=== PATIENT | female | born 1990 | race Two or more races ===

== ENCOUNTER → 2021-03-13 | Outpatient (CLI) | payer BC ==
[2021-03-13 15:07] LABS: HEMATOCRIT 32.1 % (36.0-47.0); HEMOGLOBIN 10.5 g/dL (12.0-15.5); RED BLOOD COUNT 3.73 x10^6/uL (3.50-5.40); RED CELL DISTRIBUTION WIDTH 13.7 % (11.5-14.5); WHITE BLOOD COUNT 9.8 x10^3/uL (4.0-11.0)
== END ==
LOC: LAB 13:48
PROVIDERS: ATTEND Obstetrics & Gynecology
DX: Z34.93 Encounter for supervision of normal pregnancy, unspecified, third trimester (principal)
CPT/HCPCS: 36415; 82950; 85027

== ENCOUNTER → 2021-03-20 | Outpatient (CLI) | payer BC | LOC: LAB 08:19 | PROVIDERS: ATTEND Obstetrics & Gynecology | DX: Z34.93 Encounter for supervision of normal pregnancy, unspecified, third trimester (principal); Z3A.00 Weeks of gestation of pregnancy not specified | CPT/HCPCS: 36415; 82947; 82950 ==

== ENCOUNTER 2021-04-07 21:50 | Observation (INO) | payer BC ==
[2021-04-07 22:26] LABS: AMNIO PT NEGATIVE; BILIRUBIN,URINE NEGATIVE (NEG); CLARITY,URINE CLEAR; NITRITE,URINE NEGATIVE (NEG); PH,URINE 6.5 (<5.0-8.0); PROTEIN,URINE NEGATIVE (NEG-TRACE); UROBILINOGEN,URINE 0.2 mg/dL (0.2 mg/dL)
[2021-04-07 22:31] LABS: COLOR,URINE YELLOW
[2021-04-07 22:32] LABS: BACTERIA,URINE FEW /HPF (0-FEW); RBC,URINE OCC /HPF (0-2); WBC,URINE OCC /HPF (0-4)
[2021-04-07 22:33] LABS: AMPHETAMINE/METHAMPHETAMINE NEG (NEG); BARBITURATES NEG (NEG); BENZODIAZEPINES NEG (NEG); CANNABINOIDS NEG (NEG); COCAINE NEG (NEG); METHADONE NEG (NEG); OPIATES NEG (NEG); PHENCYCLIDINE NEG (NEG)
== END 2021-04-07 22:52 | disposition home or self-care (01) ==
LOC: 3 SO LND 21:50
PROVIDERS: ADMIT Obstetrics & Gynecology
DX: O42.913 Preterm premature rupture of membranes, unspecified as to length of time between rupture and onset of labor, third trimester (principal); Z79.899 Other long term (current) drug therapy; Z3A.34 34 weeks gestation of pregnancy
CPT/HCPCS: 36415; 59025; 80307; 81001; 84112; G0378; G0379

== ENCOUNTER 2021-04-22 22:22 | Observation (INO) | payer BC ==
[2021-04-22] MEDS ORDERED: IV RINGERS,LACTATED 1000ML 1,000 ML IV SCH (22:30)
[2021-04-22 22:44] LABS: BILIRUBIN,URINE NEGATIVE (NEG); CLARITY,URINE CLEAR; COLOR,URINE YELLOW; NITRITE,URINE NEGATIVE (NEG); PROTEIN,URINE NEGATIVE (NEG-TRACE)
[2021-04-22 22:51] LABS: BACTERIA,URINE FEW /HPF (0-FEW); RBC,URINE 0 /HPF (0-2); WBC,URINE OCC /HPF (0-4)
[2021-04-22 23:01] LABS: BARBITURATES NEG (NEG); BENZODIAZEPINES NEG (NEG); CANNABINOIDS NEG (NEG); COCAINE NEG (NEG); METHADONE NEG (NEG); OPIATES NEG (NEG); PHENCYCLIDINE NEG (NEG)
[2021-04-22 23:03] LABS: AMPHETAMINE/METHAMPHETAMINE NEG (NEG)
== END 2021-04-22 23:25 | disposition home or self-care (01) ==
LOC: 3 SO LND 22:22
PROVIDERS: ADMIT Obstetrics & Gynecology; ATTEND Obstetrics & Gynecology
DX: O36.8130 Decreased fetal movements, third trimester, not applicable or unspecified (principal); Z3A.36 36 weeks gestation of pregnancy; Z79.899 Other long term (current) drug therapy
CPT/HCPCS: 59025; 80307; 81001; G0378; G0379

== ENCOUNTER → 2021-05-14 | Outpatient (CLI) | payer BC ==
[~2021-05-14] MED LIST: HYDR25CA75 PO; IBUP-1027 PO; OXYC1TAB15 PO; PREN1TAB58 PO
== END ==
LOC: LAB 12:32
PROVIDERS: ATTEND Obstetrics & Gynecology
DX: Z01.812 Encounter for preprocedural laboratory examination (principal); U07.1 COVID-19
CPT/HCPCS: U0003; U0005

== ENCOUNTER 2021-05-15 05:46 | Inpatient (IN) | payer BC ==
[~2021-05-15] VITALS: Ht 160 cm; Wt 93.5 kg
[2021-05-15] MEDS ORDERED: TERBUTALINE 1 MG/ML VIAL. SQ PRN (06:30)
[2021-05-15] MEDS ORDERED: OXYTOCIN 30 UNIT/500 ML PREMIX 500 ML IV PRN ×3 (06:30→20:45)
[2021-05-15] MEDS ORDERED: BUTORPHANOL 2 MG/ML VIAL. IVP PRN ×2 (06:30)
[2021-05-15] MEDS ORDERED: ACETAMINOPHEN 325 MG TABLET. PO PRN ×2 (06:30→20:45)
[2021-05-15] MEDS ORDERED: LIDOCAINE 1% PF 30 ML VIAL. INJ PRN (06:30)
[2021-05-15] MEDS ORDERED: 0.9 % SODIUM CHLORIDE 10 ML DISP.SYRIN. IV PRN ×2 (06:30→20:45)
[2021-05-15] MEDS ORDERED: HYDR25CA75 PO (06:47)
[2021-05-15] MEDS ORDERED: PREN1TAB58 PO (06:49)
[2021-05-15 06:53] LABS: BILIRUBIN,URINE NEGATIVE (NEG); CLARITY,URINE CLEAR; COLOR,URINE YELLOW; NITRITE,URINE NEGATIVE (NEG); PROTEIN,URINE NEGATIVE (NEG-TRACE)
[2021-05-15 06:54] LABS: BASO % 1 % (0-3); EOS # 0.1 x10^3/uL (0.0-0.7); EOS % 1 % (0-3); HEMATOCRIT 30.5 % (36.0-47.0); HEMOGLOBIN 9.9 g/dL (12.0-15.5); LYMPH # 0.7 x10^3/uL (1.0-4.8); LYMPH % 9 % (24-48); MEAN CORPUSCULAR HEMOGLOBIN 26 pg (25-35); MEAN CORPUSCULAR HGB CONC 32 g/dL (31-37); MEAN CORPUSCULAR VOLUME 79 fL (79-100); MONO # 0.6 x10^3/uL (0.0-1.1); MONO % 9 % (0-9); NEUT # 5.9 x10^3/uL (1.8-7.7); NEUT % 81 % (31-73); PLATELET COUNT 165 x10^3/uL (140-400); RED BLOOD COUNT 3.87 x10^6/uL (3.50-5.40); RED CELL DISTRIBUTION WIDTH 14.8 % (11.5-14.5); WHITE BLOOD COUNT 7.3 x10^3/uL (4.0-11.0)
[2021-05-15 07:23] LABS: BACTERIA,URINE 0 /HPF (0-FEW); RBC,URINE 0 /HPF (0-2); WBC,URINE 0 /HPF (0-4)
[2021-05-15] MEDS: IV RINGERS,LACTATED 1000ML 1,000 ML IV SCH ×2 (09:52→17:44)
--- NOTE | 2021-05-15 10:13 | PDOC1 ---
CHANNEL CEMENTER OUTSOLE MACHINE H&P Date of Admission: Date of Admission: May 15, 2021 at 05:46 History of Present Illness: EDC: 05/09/21 LMP: 08/12/20 31y @ 39.3 by L=18 presents for scheduled indxn. The pt began her care in [place]. She switched after moving. She had a IUFD at 32wks. Her last two pregnancies were . The fifth was PPROM at 34wks. She was in the hospital for about 4 days. She ended up with a C/S b/c she was told the baby was too big. The next she went into PTL at 34wks. She presented to the hospital and was found to be 5 cm. She was in the hospital for 2 days and ultimately had a . The pt has had a few ctxs to this point. PMH: Denies PSH: C/S, D&C Meds: PNV, Vistaril All: NKDA OBHx: 3 x TSVD, 1 x 32wk IUFD, 1 x 34wk C/S (PPROM), 1 x 34wk (PTL) SH: no tob, no EtOH FH: noncontributory Medications: Meds: Current Medications Medications (Trade) Dose Ordered Sig/Gemini Route PRN Reason Start Time Stop Time Status Last Admin Dose Admin Ringer's Solution 1,000 ml @ 125 mls/hr Q8H IV 05/15/21 06:30 05/15/21 09:52 Oxytocin 500 ml @ 0 mls/hr CONT PRN IV SEE I/O RECORD 05/15/21 06:30 05/15/21 07:43 Allergies: Coded Allergies: No Known Drug Allergies (Unverified , 05/15/21) Physical Exam: PE: GENERAL: No apparent distress. Alert and oriented. HEENT: Head normocephalic, atraumatic. NECK: Supple LUNGS: Clear to auscultation. HEART: RRR, S1, S2 present, pulses intact ABDOMEN: Soft, positive bowel sounds. EXTREMITIES: No cyanosis or edema. NEUROLOGIC: Normal speech, normal tone PSYCHIATRIC: Normal affect, normal mood. SKIN: No ulceration. FHT: 120s +acels/no decels/mLTV [place]: 1-3 min SVE: 1/50/-3 Labs: Laboratory Tests Test 05/15/21 06:15 05/15/21 06:29 White Blood Count 7.3 x10^3/uL (4.0-11.0) Red Blood Count 3.87 x10^6/uL (3.50-5.40) Hemoglobin 9.9 g/dL (12.0-15.5) L Hematocrit 30.5 % (36.0-47.0) L Mean Corpuscular Volume 79 fL (79-100) Mean Corpuscular Hemoglobin 26 pg (25-35) Mean Corpuscular Hemoglobin Concent 32 g/dL (31-37) Red Cell Distribution Width 14.8 % (11.5-14.5) H Platelet Count 165 x10^3/uL (140-400) Neutrophils (%) (Auto) 81 % (31-73) H Lymphocytes (%) (Auto) 9 % (24-48) L Monocytes (%) (Auto) 9 % (0-9) Eosinophils (%) (Auto) 1 % (0-3) Basophils (%) (Auto) 1 % (0-3) Neutrophils # (Auto) 5.9 x10^3/uL (1.8-7.7) Lymphocytes # (Auto) 0.7 x10^3/uL (1.0-4.8) L Monocytes # (Auto) 0.6 x10^3/uL (0.0-1.1) Eosinophils # (Auto) 0.1 x10^3/uL (0.0-0.7) Basophils # (Auto) 0.0 x10^3/uL (0.0-0.2) Treponema pallidum Antibody Nonreactive (Nonreactive) Urine Collection Type Unknown Urine Color Yellow Urine Clarity Clear Urine pH 7.0 (<5.0-8.0) Urine Specific Rumsey 1.020 (1.000-1.030) Urine Protein Negative mg/dL (NEG-TRACE) Urine Glucose (UA) Negative mg/dL (NEG) Urine Ketones (Stick) Negative mg/dL (NEG) Urine Blood Negative (NEG) Urine Nitrite Negative (NEG) Urine Bilirubin Negative (NEG) Urine Urobilinogen Dipstick 1.0 mg/dL (0.2 mg/dL) Urine Leukocyte Esterase Negative (NEG) Urine RBC 0 /HPF (0-2) Urine WBC 0 /HPF (0-4) Urine Squamous Epithelial Cells Many /LPF Urine Bacteria 0 /HPF (0-FEW) Laboratory Tests 05/15/21 06:15 Laboratory Tests 05/15/21 06:15 Assessment & Plan: A/P 31y @ 39.3 by L=18 1.) Indxn on Pit 2.) TOB - records requested again 3.) Prev C/S x 1 - desires TOLAC 4.) H/o PTL/PPROM - both at 34wks 5.) Elevated GTT - 0 of 4 values of 3 hr GTT elevated 6.) TDAP given 03/28/21 7.) Fetus cat I FHT 8.) GBS neg PHYLLIS CALDERA MD May 15, 2021 10:13
[2021-05-15] MEDS ORDERED: L&D EPIDURAL SYRINGE 50 ML ONE ×2 (12:05→16:21)
[2021-05-15] MEDS ORDERED: ePHEDrine PF IN SALINE 50 MG/10 ML SYRINGE. IV PRN ×2 (12:15→16:45)
[2021-05-15] MEDS ORDERED: IV RINGERS,LACTATED 1000ML 1,000 ML IV SCH (12:15)
[2021-05-15] MEDS ORDERED: NALOXONE 0.4 MG/ML VIAL. IV PRN ×2 (12:15→16:45)
[2021-05-15] MEDS ORDERED: ROPIVacaine 0.2% PF 10 ML VIAL. EPID PRN (12:15)
[2021-05-15] MEDS ORDERED: ROPIVacaine 0.2% PF 10 ML VIAL. ONE ×2 (13:00→19:30)
[2021-05-15] MEDS ORDERED: L&D EPIDURAL 50 ML SYRINGE. ONE (13:00)
[2021-05-15] MEDS ORDERED: fentaNYL PF VIAL 100 MCG/2 ML VIAL EPID ONE (16:45)
[2021-05-15] MEDS ORDERED: L&D EPIDURAL SYRINGE 50 ML EPID PRN (16:45)
[2021-05-15] MEDS ORDERED: IV RINGERS,LACTATED 1000ML 1,000 ML IV ONE (16:45)
[2021-05-15] MEDS ORDERED: ONDANSETRON PF 4 MG/2 ML VIAL. IV PRN (16:45)
[2021-05-15] MEDS ORDERED: GENTAMICIN SULFATE IV SCH (17:00)
[2021-05-15] MEDS ORDERED: NORMAL SALINE IV SCH (17:00)
[2021-05-15] MEDS ORDERED: AMPICILLIN SODIUM 2 GM in IV NORMAL SALINE 100ML 100 ML IV SCH (17:00)
--- NOTE | 2021-05-15 17:13 | PDOC ---
CUSTOMS COMPLIANCE ANALYST PROGRESS NOTE Date of Service: DATE: 05/15/21 TIME: 17:13 Subjective: Pt comfortable with ctxs. Denies f/c Objective: Labs: Laboratory Tests Test 05/15/21 06:15 05/15/21 06:29 White Blood Count 7.3 x10^3/uL (4.0-11.0) Red Blood Count 3.87 x10^6/uL (3.50-5.40) Hemoglobin 9.9 g/dL (12.0-15.5) L Hematocrit 30.5 % (36.0-47.0) L Mean Corpuscular Volume 79 fL (79-100) Mean Corpuscular Hemoglobin 26 pg (25-35) Mean Corpuscular Hemoglobin Concent 32 g/dL (31-37) Red Cell Distribution Width 14.8 % (11.5-14.5) H Platelet Count 165 x10^3/uL (140-400) Neutrophils (%) (Auto) 81 % (31-73) H Lymphocytes (%) (Auto) 9 % (24-48) L Monocytes (%) (Auto) 9 % (0-9) Eosinophils (%) (Auto) 1 % (0-3) Basophils (%) (Auto) 1 % (0-3) Neutrophils # (Auto) 5.9 x10^3/uL (1.8-7.7) Lymphocytes # (Auto) 0.7 x10^3/uL (1.0-4.8) L Monocytes # (Auto) 0.6 x10^3/uL (0.0-1.1) Eosinophils # (Auto) 0.1 x10^3/uL (0.0-0.7) Basophils # (Auto) 0.0 x10^3/uL (0.0-0.2) Treponema pallidum Antibody Nonreactive (Nonreactive) Urine Collection Type Unknown Urine Color Yellow Urine Clarity Clear Urine pH 7.0 (<5.0-8.0) Urine Specific [place] 1.020 (1.000-1.030) Urine Protein Negative mg/dL (NEG-TRACE) Urine Glucose (UA) Negative mg/dL (NEG) Urine Ketones (Stick) Negative mg/dL (NEG) Urine Blood Negative (NEG) Urine Nitrite Negative (NEG) Urine Bilirubin Negative (NEG) Urine Urobilinogen Dipstick 1.0 mg/dL (0.2 mg/dL) Urine Leukocyte Esterase Negative (NEG) Urine RBC 0 /HPF (0-2) Urine WBC 0 /HPF (0-4) Urine Squamous Epithelial Cells Many /LPF Urine Bacteria 0 /HPF (0-FEW) Laboratory Tests 05/15/21 06:15 Laboratory Tests 05/15/21 06:15 Physical Exam: GENERAL: No apparent distress. Alert and oriented. HEENT: Head normocephalic, atraumatic. NECK: Supple LUNGS: Clear to auscultation. HEART: RRR, S1, S2 present, pulses intact ABDOMEN: Soft, positive bowel sounds. EXTREMITIES: No cyanosis or edema. NEUROLOGIC: Normal speech, normal tone PSYCHIATRIC: Normal affect, normal mood. SKIN: No ulceration. FHT: 160s +acels/no decels/mLTV [place]: 2-3 min SVE: 6/75/-2 Assessment & Plan: A/P 31y @ 39.3 by L=18 1.) Indxn on Pit 2.) IAI Tmax 99.9 (05/15 1616) along with tachycardia. Started on Amp/Gent 3.) Covid pos - asx 4.) Prev C/S x 1 - desires TOLAC 5.) H/o PTL/PPROM - both at 34wks 6.) Elevated GTT - 0 of 4 values of 3 hr GTT elevated 7.) TDAP given 03/28/21 8.) Fetus cat I FHT 9.) ASCUS/HPV pos 10.) GBS neg 11.) Boy PHYLLIS CALDERA MD May 15, 2021 17:13
[2021-05-15] MEDS ORDERED: MMR per PROTOCOL. MC PRN (20:45)
[2021-05-15] MEDS ORDERED: diphenhydrAMINE ORAL ELIXIR 12.5 MG/5 ML ML PO PRN (20:45)
[2021-05-15] MEDS ORDERED: TDaP (Adacel) per PROTOCOL. MC PRN (20:45)
[2021-05-15] MEDS ORDERED: DOCUSATE SODIUM 100 MG CAPSULE. PO PRN (20:45)
[2021-05-15] MEDS ORDERED: KETOROLAC 30 MG/ML VIAL. IVP PRN (20:45)
[2021-05-15] MEDS ORDERED: BENZOCAINE 20% TOPICAL AEROSOL SPRAY 57GM CAN. TP PRN (20:45)
--- NOTE | 2021-05-15 20:55 | PDOC4 ---
VAGINAL DELIVERY DATE DATE: 05/15/21 TIME: 20:55 TIME Patient delivered a viable male over intact perineum at 2029. Wt 7 lb 12 oz. Apgars 8/9. Placenta delivered spontaneously, intact with 3VC. No lacerations. Good hemostasis noted. 20 U of Pit given with IVF. EBL 300 cc. WEIGHT Weight [ ] PHYLLIS CALDERA MD May 15, 2021 20:55
[2021-05-15] MEDS: IBUPROFEN 400 MG TABLET. PO PRN (21:47)
[2021-05-15 23:30] VITALS: BP 93/50
[2021-05-16 03:30] VITALS: BP 99/50
[2021-05-16 07:30] VITALS: BP 115/57
[2021-05-16 08:10] LABS: HEMATOCRIT 26.5 % (36.0-47.0); HEMOGLOBIN 8.6 g/dL (12.0-15.5); RED BLOOD COUNT 3.35 x10^6/uL (3.50-5.40); RED CELL DISTRIBUTION WIDTH 15.2 % (11.5-14.5); WHITE BLOOD COUNT 7.9 x10^3/uL (4.0-11.0)
[2021-05-16] MEDS: IBUPROFEN 400 MG TABLET. PO PRN ×2 (08:10→18:29)
[2021-05-16] MEDS: PRENATAL MULTIVITAMIN TABLET. PO SCH (08:11)
[2021-05-16] MEDS: FERROUS SULFATE 325 MG TABLET. PO SCH ×2 (08:11→18:29)
--- NOTE | 2021-05-16 08:30 | NUR ---
Dr. Wakefield paged and returned call, informed of inability to void and straight cath with 1100 ml output, no new orders received
[2021-05-16] MEDS ORDERED: MULTIVITAMIN with MINERAL TABLET. PO SCH (09:00)
--- NOTE | 2021-05-16 10:20 | NUR ---
Unable to void, Dr. Wakefield paged and returned call, informed of inability to void, order received for Casarez
--- NOTE | 2021-05-16 11:58 | PDOC ---
MANAGER COMMUNICATION PROGRESS NOTE Date of Service: DATE: 05/16/21 TIME: 11:54 Subjective: Doing well. Denies complaints. . Pain well managed with PO meds. Tolerates activity without difficulty. Complains of urinary retention. Objective: Objective: Afebrile, VSS. FF/NT U-1. Scant lochia. Vital Signs: Vital Signs Date Time Temp Pulse Resp B/P (MAP) Pulse Ox O2 Delivery O2 Flow Rate FiO2 05/15/21 23:30 99.7 91 18 93/50 (64) Room Air 99.7 05/16/21 07:30 98 Vital Signs Date Time Temp Pulse Resp B/P (MAP) Pulse Ox O2 Delivery O2 Flow Rate FiO2 05/16/21 07:30 97.7 68 16 115/57 (76) 98 Room Air 97.7 Labs: Laboratory Tests Test 05/16/21 07:25 White Blood Count 7.9 x10^3/uL (4.0-11.0) Red Blood Count 3.35 x10^6/uL (3.50-5.40) L Hemoglobin 8.6 g/dL (12.0-15.5) L Hematocrit 26.5 % (36.0-47.0) L Mean Corpuscular Volume 79 fL (79-100) Mean Corpuscular Hemoglobin 26 pg (25-35) Mean Corpuscular Hemoglobin Concent 32 g/dL (31-37) Red Cell Distribution Width 15.2 % (11.5-14.5) H Platelet Count 149 x10^3/uL (140-400) Laboratory Tests 05/16/21 07:25 Laboratory Tests 05/16/21 07:25 Physical Exam: GENERAL: No apparent distress. Alert and oriented. HEENT: Head normocephalic, atraumatic. NECK: Supple LUNGS: Clear to auscultation. HEART: RRR, S1, S2 present, pulses intact ABDOMEN: Soft, positive bowel sounds. EXTREMITIES: No cyanosis or edema. NEUROLOGIC: Normal speech, normal tone PSYCHIATRIC: Normal affect, normal mood. SKIN: No ulceration. Assessment & Plan: RN to place mercedes per MD order. Anticipate DC tomorrow. MICHAELA HURD CNM May 16, 2021 11:57
[2021-05-16 12:05] VITALS: BP 104/63
--- NOTE | 2021-05-16 14:15 | NUR ---
States she had blood running down her legs after her shower, small amt dried blood on legs, a few spots of blood on floor in bathroom, fundus firm at umbilicus with scant lochia rubra on pad, legs cleaned and pad changed, instructed to call for heavy bleeding
[2021-05-16] MEDS: oxyCODONE/APAP 5/325 1 TAB TABLET PO PRN ×2 (14:31→23:17)
[2021-05-16 16:30] VITALS: BP 98/58
[2021-05-16 19:42] VITALS: BP 122/64
[2021-05-16 23:15] VITALS: BP 110/59
[2021-05-17] MEDS: IBUPROFEN 400 MG TABLET. PO PRN ×2 (02:44→17:00)
[2021-05-17] MEDS: oxyCODONE/APAP 5/325 1 TAB TABLET PO PRN ×3 (06:05→21:01)
[2021-05-17 06:18] VITALS: BP 123/77
[2021-05-17] MEDS: PRENATAL MULTIVITAMIN TABLET. PO SCH (10:12)
[2021-05-17] MEDS: FERROUS SULFATE 325 MG TABLET. PO SCH ×2 (10:12→16:59)
--- NOTE | 2021-05-17 10:47 | PDOC ---
ENVIRONMENTAL STUDIES FACULTY MEMBER PROGRESS NOTE Date of Service: DATE: 05/17/21 TIME: 0930 Subjective: Doing well. Pain well managed with PO meds. Voiding without difficulty. Tolerates activity, regular diet. Infant to stay until blood cultures return tomorrow morning - pt. is appropriately tearful regarding additional hospital stay. Discussed transition to Boarder Status. Objective: Objective: FFNT U-1. Scant lochia. + 2 edema to BLE. Breasts filling. Nipples intact. . Vital Signs: Vital Signs Date Time Temp Pulse Resp B/P (MAP) Pulse Ox O2 Delivery O2 Flow Rate FiO2 05/16/21 07:30 97.7 68 16 115/57 (76) 98 Room Air 97.7 Vital Signs Date Time Temp Pulse Resp B/P (MAP) Pulse Ox O2 Delivery O2 Flow Rate FiO2 05/17/21 06:40 Room Air 05/17/21 06:18 97.7 96 16 123/77 (92) 96 97.7 Physical Exam: GENERAL: No apparent distress. Alert and oriented. HEENT: Head normocephalic, atraumatic. NECK: Supple LUNGS: Clear to auscultation. HEART: RRR, S1, S2 present, pulses intact ABDOMEN: Soft, positive bowel sounds. EXTREMITIES: No cyanosis. NEUROLOGIC: Normal speech, normal tone PSYCHIATRIC: Normal affect, normal mood. SKIN: No ulceration. Assessment & Plan: Anticipate d/c to boarder status today. F/U appt scheduled 06/25/21 @ 10:15am. D/C instructions reviewed. Pt. v/u of all. MICHAELA HURD CNM May 17, 2021 10:47
--- NOTE | 2021-05-17 11:23 | NUR ---
SS following up with referral regarding maternal agitation with staff, concerns that mom lives in [place] but had in [place], concerns about custody of other two children, and concerns about past substance use. SS reviewed mother and infant chart and discussed with mother and infant RN. No current drug screen. Mother was positive for Cocaine 05/2017 (approximately 4 years ago). No other known noted drug screens since that time. Mother has two other children, Jose Tavarez and Saniya Smith, from other father. Other children not in custody of mother. Mother COVID19 positive and asymptomatic. Cultured pending on infant due to infection in mother. Infant not able to be discharged until cultures resulted. SS met with mother and father of in room. 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 Mother and father over income for [employer]. Mother and father reported having all needed supplies for to include car seat and good transportation. Mother and father reported having good family support. Other children living with other family. Mother and father stated that they are frustrated with hospital stay due to not knowing about the COVID prior to admission, confusion on why they needed to stay one more night, and being "stir crazy" due to having to quarantine in the room. Mother and father reported having raisin separator operator appointment scheduled. Mother and father denied any current drug issues or behavioral health issues. SS discussed with infant RN and Nurse Practitioner. Infant BOTTLING EQUIPMENT SALES REPRESENTATIVE requesting DCF hotline due to suspicions and concerns. DCF hotline report made. Intake#[id number]. RN storeroom supervisor, Marry Flood, updated. SS will continue to follow as needed.
[2021-05-17] MEDS ORDERED: PREN1TAB58 PO ×2 (13:18→14:56)
[2021-05-17] MEDS ORDERED: IBUP-1027 PO ×2 (13:18→14:56)
[2021-05-17] MEDS ORDERED: OXYC1TAB15 PO ×2 (13:18→14:56)
--- NOTE | 2021-05-17 15:01 | PDOC ---
AUTOMATIC BANDSAW TENDER PROGRESS NOTE Date of Service: DATE: 05/17/21 TIME: 14:59 Objective: Vital Signs: Vital Signs Date Time Temp Pulse Resp B/P (MAP) Pulse Ox O2 Delivery O2 Flow Rate FiO2 05/16/21 07:30 97.7 68 16 115/57 (76) 98 Room Air 97.7 Vital Signs Date Time Temp Pulse Resp B/P (MAP) Pulse Ox O2 Delivery O2 Flow Rate FiO2 05/17/21 14:54 20 Room Air 05/17/21 06:18 97.7 96 123/77 (92) 96 97.7 Physical Exam: GENERAL: No apparent distress. Alert and oriented. HEENT: Head normocephalic, atraumatic. NECK: Supple LUNGS: Clear to auscultation. HEART: RRR, S1, S2 present, pulses intact ABDOMEN: Soft, positive bowel sounds. EXTREMITIES: No cyanosis or edema. NEUROLOGIC: Normal speech, normal tone PSYCHIATRIC: Normal affect, normal mood. SKIN: No ulceration. Assessment & Plan: to be discharged tomorrow pending reassuring lab results. Pt. to stay at hospital - unable to pickler helper prescriptions for pain management 2/2 COVID +. Anticipate d/c home tomorrow. MICHAELA HURD CNM May 17, 2021 15:01
[2021-05-17 16:50] VITALS: BP 146/68
[2021-05-17 21:00] VITALS: BP 107/67
[2021-05-18 05:12] VITALS: BP 107/66
[2021-05-18] MEDS: oxyCODONE/APAP 5/325 1 TAB TABLET PO PRN (05:12)
[2021-05-18 08:15] VITALS: BP 119/73
--- NOTE | 2021-05-18 09:36 | PDOC ---
OLEOMARGARINE MAKER PROGRESS NOTE Date of Service: DATE: 05/18/21 TIME: 09:33 Subjective: Doing well. Pain well managed with PO meds. Tolerates regular diet. Denies complaints with activity. independently. Otherwise denies complaints. Objective: Objective: FF U-2, Scant lochia, + 2 edema to bilateral LE. Breasts filling. Nipples intact. Vital Signs: Vital Signs Date Time Temp Pulse Resp B/P (MAP) Pulse Ox O2 Delivery O2 Flow Rate FiO2 05/17/21 14:54 20 Room Air 05/17/21 16:50 99.0 74 146/68 (94) 99.0 05/17/21 21:01 96 Vital Signs Date Time Temp Pulse Resp B/P (MAP) Pulse Ox O2 Delivery O2 Flow Rate FiO2 05/18/21 08:15 98.0 54 18 119/73 (88) Room Air 98.0 05/17/21 21:01 96 Physical Exam: GENERAL: No apparent distress. Alert and oriented. HEENT: Head normocephalic, atraumatic. NECK: Supple LUNGS: Clear to auscultation. HEART: RRR, S1, S2 present, pulses intact ABDOMEN: Soft, positive bowel sounds. EXTREMITIES: No cyanosis or edema. NEUROLOGIC: Normal speech, normal tone PSYCHIATRIC: Normal affect, normal mood. SKIN: No ulceration. Assessment & Plan: A/P 31y 1.) PPD # 3 s/p 2.) 3.) Covid + 4.) s/p TDAP 5.) No Covid vaccine MICHAELA HURD CNM May 18, 2021 09:36
[2021-05-18 10:25] VITALS: BP 122/79
--- NOTE | 2021-05-20 14:41 | DS ---
DATE OF DISCHARGE: 05/18/2021 ADMISSION DIAGNOSES: 1. Intrauterine at 39 weeks and 3 days by LMP equal to an 18-week ultrasound. 2. Induction of labor. 3. Previous section x 1, desires trial of labor. 4. History of labor and premature rupture of membranes, both at 34 weeks. 5. Elevated GTT with normal 3-hour GTT. 6. Status post Tdap. 7. GBS negative. DISCHARGE DIAGNOSES: 1. Intrauterine at 39 weeks and 3 days by LMP equal to an 18-week ultrasound. 2. Induction of labor. 3. Previous section x 1, desires trial of labor. 4. History of labor and premature rupture of membranes, both at 34 weeks. 5. Elevated GTT with normal 3-hour GTT. 6. Status post Tdap. 7. GBS negative. 8. COVID screening positive. PROCEDURE: Vaginal after section. BRIEF HOSPITAL COURSE: The patient is a 31-year-old 6, para 2-3-0-5 who presented to Labor and Delivery at 39 weeks and 3 days by LMP equal to an 18-week ultrasound for scheduled induction. The patient began her care in [place] and switched mainly due to that location not being able to perform . The patient's obstetrical history is complicated by an IUFD at 32 weeks and her last 2 pregnancies being . In the fifth being PPROM at 34 weeks. The patient ultimately ended up with with this because she was told that the baby was too big. Her following was a at 34 weeks. In the office a discussion was held with the patient regarding induction. The patient was placed on the induction schedule for 05/15/2001 where Pitocin was started. Her initial cervical exam revealed her to be 1 cm dilated. The patient was on Pitocin throughout her labor. She had had a screening test for COVID, the prior day; but only return in the middle of her induction where she was found to be COVID positive. At that time, COVID precautions were taken. The patient ultimately delivered by vaginal delivery later that night. See delivery note for full detail. By day #3, the patient was meeting all discharge criteria and subsequently discharged home. DISCHARGE INSTRUCTIONS: The patient was told not to lift anything greater than 20 pounds, have pelvic rest for 6 weeks, not to drive on narcotics. DISCHARGE INSTRUCTIONS: The patient was told not to lift anything greater than 20 pounds, have pelvic rest for 6 weeks. CALL IF: The patient was to call if she had fever, chills, nausea, vomiting, abdominal pain or any additional questions or concerns. FOLLOWUP APPOINTMENT: The patient was to follow up on 06/25/2021 at 10:15 a.m. for her visit. DISCHARGE MEDICATIONS: The patient was given a prescription for Percocet 5 mg, #20 pills; Motrin 800 mg, #30 pills, vitamins, #[address]: Reji TID: [id number]
--- NOTE | 2021-05-20 15:07 | PATHOLOGY ---
[facility] Accession Number: [id number] . 01 Material submitted: . placenta - CORD AND PLACENTA . 01 Clinical history: . . 02 Diagnosis: 561 gram term placenta of an estimated 39 weeks 3 days gestation with attached membranes and umbilical cord and separate segment of umbilical cord: - Placental weight at approximate 75th percentile for estimated gestational age. - Furcate insertion of umbilical cord. - Few sub-amniotic pigmented macrophages consistent with meconium staining. - Small intervillous thrombus, measuring 1.6 cm, with adjacent avascular villi. LBQ 05/20/2021 1419 Local . 02 Comment: There is no evidence of an acute chorioamnionitis or villitis. There are no infarcts. (JPM/db; 05/17/2021) . 02 Electronically signed: . Vernon Dailey MD, Pathologist NPI- [id number] . 01 Gross description: . Fixative: Formalin Labeled: Placenta Specimen received: A lopez placenta that is most likely all present Trimmed placental weight: 561 g Umbilical cord dimensions: The attached umbilical cord measures 18.5 cm in length and ranges from 1.3 cm to 1.6 cm in diameter. The attached umbilical cord displays a possible furcate insertion (1.5 cm in length) that is intact. Also received in the same container is an additional segment of umbilical cord (22.2 cm in length and averaging 1.5 cm in diameter). Umbilical cord insertion: Eccentric, 4.8 cm from the nearest placental edge Number of umbilical vessels: 3 Umbilical cord appearance: Aguayo-blue and unremarkable Placental disc dimensions: 27.0 x 19.0 x 2.7 cm surface: Blue-mayo with the usual arborizing vasculature Maternal surface: Montfort-red, lobular and intact with minimal adherent blood clot and without evidence of disruption Cut surfaces: Maroon and spongy Abnormalities: A marginal area of hemorrhage (1.6 x 0.8 x 0.7 cm) membranes: Insert marginally, are aguayo-mayo, dusky and unremarkable Photographs are taken. . Data Analytics Architect sections are submitted as follows: A1: Umbilical cord, represented A2: membranes, represented A3: Section of surface adjacent to umbilical cord insertion, represented A4-A5: Full-thickness sections of placental disc to include area of hemorrhage represented in A4, represented. (SAMISH; 05/16/2021) DKA/DKA 05/16/2021 1519 Local . 02 Pathologist provided ICD-10: O43.893, Z37.0, Z3A.39 . 02 CPT . 872729 Specimen Comment: A courtesy copy of this report has been sent to [phone] Specimen Comment: Report sent to Specimen Comment: A duplicate report has been generated due to demographic updates. Performed at: 01 [facility] [address], [place], [place] [id number] MD Vincent Barcenas MD Phone: [phone] Performed at: [facility] [address], [place] [id number] MD Vernon Dailey MD Phone: [phone]
== END 2021-05-18 10:35 | disposition home or self-care (01) | DRG 805 ==
LOC: 3 SO LND 05:46 → UNDODISIN 05-18 09:08
PROVIDERS: ADMIT Obstetrics & Gynecology; ATTEND Obstetrics & Gynecology
PROC: 10E0XZZ Delivery of Products of Conception, External Approach (ICD-10-PCS; principal; 2021-05-15)
PROC: 3E033VJ Introduction of Other Hormone into Peripheral Vein, Percutaneous Approach (ICD-10-PCS; 2021-05-15)
DX: O98.52 Other viral diseases complicating childbirth (principal); U07.1 COVID-19; Z37.0 Single live birth; O34.219 Maternal care for unspecified type scar from previous cesarean delivery; Z3A.39 39 weeks gestation of pregnancy; P96.83 Meconium staining; O77.0 Labor and delivery complicated by meconium in amniotic fluid
CPT/HCPCS: 36415; 81001; 85025; 85027; 86592; 86850; 86900; 86901; 88307; A6258; C1755; J0290; J1580; J2590; J2795; J3010; J7120; G0378

== ENCOUNTER → 2021-09-17 | Outpatient (CLI) | payer BC | LOC: LAB 12:19 | PROVIDERS: ATTEND Obstetrics & Gynecology | DX: N89.8 Other specified noninflammatory disorders of vagina (principal) | CPT/HCPCS: Q0111 ==